=== PATIENT | female | born 1995 | race Caucasian/White ===

== ENCOUNTER 2018-07-07 12:43 | Day surgery (SDC) | payer OTHER, SELFPAY ==
[2018-07-07 13:35] VITALS: BP 107/77; PULSE 74; RESP 16; TEMP 36.5; O2SAT 99; BMI 40.0
[2018-07-07 13:53] LABS: Pregnancy, Serum, hCG Quali. NEGATIVE Negative (0-9 Nonpreg)
--- NOTE | 2018-07-07 14:05 | PCM.OPRPT ---
Problem List (1) Appendicolith Status: Acute (2) Right lower quadrant abdominal pain Status: Acute Report of Operation Date of Procedure: 07/07/18 Pre-Operative Diagnosis: K38.9 appendicolith. R10.31 right lower quadrant abdominal pain Post-Operative Diagnosis: Same Surgery/Procedure Performed:: [id number] laparoscopic appendectomy Type of Anesthesia:: General Description of Procedure: Patient was brought into the operating room. Placed in the supine position. Under excellent general endotracheal intubation the abdomen was sterilely prepped and draped in the usual fashion. Local was injected infraumbilically. Dissection was carried down to the fascia. The fascia was grasped with a Nikos. Veress needle was placed inside the abdomen the abdomen was insufflated to 15 torr. A 10/12 trocar was placed without difficulty. Patient was placed in the head down rotated to the left position. Suprapubic #5 trochars placed a left lower quadrant #5 trocar was placed. Appendix was identified look dilated in the middle I dissected the mesoappendix with the Enseal had excellent hemostasis I transected the base of the appendix with a 45 linear cutter and excellent hemostasis. Brought the appendix through a specimen bag through the umbilicus without difficulty reinserted the trocar and reinflated the abdomen. There was a slight bruise to the base of the appendiceal stump to use touch cautery to control this quite nicely and had excellent hemostasis inspected the pelvis good hemostasis was noted ran the small bowel no Meckel's diverticulum was identified remove the trochars under direct visualization good hemostasis was noted. Close the fascia the umbilical port with a [id number] stitch of 0 Vicryl ?2 skin incisions were closed skeptical stitches of 4-0 Monocryl. Steri-Strips applied. Sterile dressings were applied. The patient tolerated the procedure well. - Admit VTE Documentation VTE Present on Admission: No VTE Mechan Device Prophylaxis: SCD's VTE Pharm Prophylaxis ordered?: No Reason prophylaxis not ordered:: Treatment Not Indicated
--- NOTE | 2018-07-07 14:07 | DCINST_ITS ---
Discharge Diet: Light diet - advance as tolerated - if you have questions about your diet instructions, please talk to you doctor. Discharge Activity: May Not Drive - for 3-5 days or while taking narcotic pain meds. May shower in (days): 1 Call your doctor if your incision/area has: Continuous Slow Oozing, Sudden Increased Bleeding, Increased Pain/ Swelling, Increased Redness, Foul Smelling Discharge Call your doctor if you observe: Fever of 101 or Higher Suture Line Care: Avoid Pulling/Pushing, Avoid Pinching/Bending Additional Dressing/Incision Instructions:: Keep dressing clean and dry. Change or remove dressing in 2 days. Leave steri strips for 1 week. May protect with a gauze bandaid. Medications to take at Discharge hyoscyamine ER 0.375 mg tablet,extended release,12 hr 0.375 mg PO Q12H 07/02/18 norgestimate-ethinyl estradiol 0.18 mg/0.215mg/0.25mg-35 mcg(28)tablet 1 tab PO QDAY 07/02/18 Oxycodone HCl/Acetaminophen [Percocet 5/325] 1 - 2 tab PO Q4H PRN PRN 4 Days # 30 tab 07/07/18 Allergies/Adverse Reactions: Allergies No Known Allergies Allergy (Verified 07/06/18 12:49) Primary Care Physician: Nohemi Márquez PA-C [Primary Care Provider] - Test Results: Test results from this visit will be discussed in further detail at your follow- up appointment, if applicable. Please Follow Up With: Damaso Bridges MD - [phone] When: Call to make a follow up appointment with your doctor in 1 week.
--- NOTE | 2018-07-07 14:35 | APP_PTH ---
PATIENT: GUNJAN BEAVER LOC: [facility] [place] U#:[id number] AGE/SX: 23/F ROOM: RE07/07/[address]: Dr. Damaso Bridges MD : 1995 BED: DIS: 07/07/2018 SPEC #: [id number] RECD: 07/08/18 09:19 STATUS: RAGHAV FREDI #: [id number] KELLY: 07/07/18 14:[address]: Damaso Bridges DEPT: SURGICAL PATHOLOGY RECD BY: Darryl Seth ENTERED: 07/08/18 10:17 SP TYPE: APPENDIX OTHR DR: Nohemi Márquez PA-C Tissues: Appendix, NOS Procedures: Surgery Specimen Level III HEADER OPERATION: Laparoscopic appendectomy PRE-OP DIAGNOSIS: Right lower quadrant pain, appendicolith TISSUE SUBMITTED: Appendix MICROSCOPIC DIAGNOSIS Appendix, appendectomy: Appendix, negative for acute inflammation. Fecalith is noted in the lumen. SJ:rachel 8/10/18 COMMENT The entire appendix is examined. Clinical correlation and appropriate follow up are necessary. MICROSCOPIC DESCRIPTION Slides are reviewed. GROSS DESCRIPTION Received is one container labeled with the patient's name and designated appendix. The specimen consists of an appendix measuring 5.5 cm in length and up to 1 cm in average diameter. The attached periappendiceal adipose tissue measures 2 cm in width. The serosa is congested. No obvious perforation is identified. The lumen contains fecalith. No mass lesion is identified. The entire appendix is submitted in two cassettes as follows: 1 ? tip and proximal portion, 2 ? rest of the appendix. / SJ:rachel 07/08/18 TC: 5 [facility]: [id number]
[2018-07-07] MEDS: Cefazolin 2 GM in 0.9% Normal Saline 100 ML IV (14:54)
[2018-07-07] MEDS: Bupivacaine Mpf 0.5% 30 ML VIAL (15:10)
[2018-07-07 15:59] VITALS: BP 107/77; BP 142/84; PULSE 75; RESP 16; TEMP 37.1; O2SAT 100
[2018-07-07 16:15] VITALS: BP 107/77; BP 128/70; PULSE 67; RESP 16; O2SAT 95
[2018-07-07 16:30] VITALS: BP 107/77; BP 122/67; PULSE 90; RESP 16; O2SAT 97
[2018-07-07 16:47] VITALS: BP 107/77; BP 122/67; PULSE 72; RESP 16; TEMP 37.1; O2SAT 94
[2018-07-07 17:33] VITALS: BP 107/77
== END 2018-07-07 17:43 | disposition home or self-care (01) ==
LOC: SDC 12:44 → AC 12:45
PROVIDERS: Family Provider Family Medicine; PCP Family Medicine; Visit Provider Surgery
PROC: 0DTJ4ZZ Resection of Appendix, Percutaneous Endoscopic Approach (ICD-10-PCS; CPT 44970; principal; 2018-07-07 14:15)
DX: K38.1 Appendicular concretions (principal); Z79.899 Other long term (current) drug therapy
CPT/HCPCS: 00840; 44970; 84703; 88304; J7120; C1760; J2405